=== PATIENT | male | born 1985 | race Caucasian/White ===

== ENCOUNTER 2016-12-16 04:44 | Inpatient (IN) | payer OTHER ==
[~2016-12-16 04:44] MED LIST: ADVAIR 1001 DISK W/D IH; POTASSIUM595 ( 99 ) PO; ZYRTEC-D T1 TAB.SR . PO
[2016-12-16] MEDS ORDERED: NO HOME MEDICATION XX (05:32)
[2016-12-16 06:08] LABS: BASO % 0.4 % (0-2); EOS % 5.8 % (0-7); EOSINOPHIL ABSOLUTE COUNT 0.3 tho/cmm (0.0-0.7); HCT-HEMATOCRIT 40.5 % (36.0-53.5); HGB-HEMOGLOBIN 14.5 gm/dl (13.5-17.0); IMMATURE GRANULOCYTES ABSOLUTE 0.01 tho/cmm (0-0.03); IMMATURE GRANULOCYTES PERCENT 0.2 % (0-0.3); LYMPH % 24.4 % (20-45); LYMPH ABSOLUTE COUNT 1.1 tho/cmm (0.8-4.5); MCH (MEAN CORPUSCULAR HGB) 29.2 pg (28.0-32.0); MCHC MEAN CORPUSCULAR HGB CONC 35.8 % (32.0-36.0); MCV (MEAN CELL VOLUME) 81.7 fl (82.0-96.0); MEAN PLATELET VOLUME 8.6 cmc (9.4-12.4); MONO % 13.9 % (0-12); MONOCYTE ABSOLUTE COUNT 0.6 tho/cmm (0.0-1.2); NEUTROPHIL ABSOLUTE COUNT 2.5 tho/cmm (1.6-8.0); NEUTROPHIL-AUTOMATED 2.5 tho/cmm (1.6-8.0); NEUTROPHILS % 55.3 % (40-80); PLATELET COUNT 173 tho/cmm (150-450); RED BLOOD COUNT 4.96 mil/cmm (4.40-5.70); RED CELL DISTRIBUTION WIDTH 13.2 % (12.4-16.4); WHITE BLOOD COUNT 4.5 tho/cmm (4.0-10.0)
[2016-12-16 06:25] LABS: ALB/GLOB RATIO 0.9 (0.8-2.0); ALBUMIN 3.9 g/dl (3.5-5.0); ALCOHOL (ETOH) <10 mg/dl (<10); ALKALINE PHOSPHATASE 52 U/L (33-138); ALT/SGPT 33 U/L (12-78); BILIRUBIN,TOTAL 0.7 mg/dl (0.0-1.5); BLOOD UREA NITROGEN 12 mg/dl (6-24); CALCIUM 8.7 mg/dl (8.5-10.5); CARBON DIOXIDE-VENOUS 22 mmol/L (22-32); CHLORIDE 103 mmol/l (96-110); CREATININE 0.86 mg/dl (0.60-1.30); GLUCOSE 94 mg/dL (70-110); PROLACTIN 4 ng/ml (2.5-17.4); SODIUM 138 mmol/L (135-145); eGFR VALUE FOR BLACK >90 mL/Min
[2016-12-16 06:29] LABS: ANION GAP 17 mmol/L (0-20); MAGNESIUM 1.9 mg/dl (1.3-2.6)
[2016-12-16 06:30] LABS: AST/SGOT 27 U/L (10-40); POTASSIUM 4.1 mmol/L (3.7-5.1)
[2016-12-16 07:36] LABS: URINE BILIRUBIN NEGATIVE (NEG); URINE BLOOD NEGATIVE (NEG); URINE GLUCOSE (UA) NEGATIVE (NEG); URINE KETONE NEGATIVE (NEG); URINE LEUKOCYTE ESTERASE NEGATIVE (NEG); URINE NITRITE NEGATIVE (NEG); URINE PH 6.5 (5.0-8.0); URINE PROTEIN NEGATIVE (NEG); URINE SPECIFIC GRAVITY 1.005 (1.003-1.030)
[2016-12-16 07:37] LABS: URINE COLOR YELLOW
[2016-12-16 07:38] LABS: URINE APPEARANCE CLEAR
[2016-12-16 08:37] LABS: TSH-THYROID STIMULATING HORM. 1.45 uIU/ml (0.40-3.80)
[2016-12-18] MEDS ORDERED: PRINIVIL5 M1 PO (17:02)
[2016-12-18] MEDS ORDERED: ZOCOR20 M1 PO (17:02)
[2016-12-18] MEDS ORDERED: ASPIRIN325 M3 PO (17:03)
== END 2016-12-18 18:15 | DRG 65 ==
LOC: EDMED 04:44 → EMR2 06:14 → 5EB 11:40
PROVIDERS: Emergency Medicine; ADMIT Family Medicine
DX: I63.9 Cerebral infarction, unspecified (principal); G81.91 Hemiplegia, unspecified affecting right dominant side; I10 Essential (primary) hypertension; R47.01 Aphasia; F12.90 Cannabis use, unspecified, uncomplicated
CPT/HCPCS: A9577; G0480; G8978-GP-CI; G8979-GP-CI; G8980-GP-CI; G8987-GO-CJ; G8988-GO-CI; G8989-GO-CI; J1650; J7030; Q9967